=== PATIENT | male | born 1965 | race Caucasian/White ===

== ENCOUNTER 2023-08-09 17:45 | Emergency (ER) | payer MEDICARE ==
[2023-08-09] MEDS ORDERED: methylPREDNISolone Sodium Succinate 125 MG/2 ML SDV IM ONE (18:28)
== END 2023-08-09 18:50 | disposition home or self-care (01) ==
LOC: DL.ED 17:45
DX: M32.9 Systemic lupus erythematosus, unspecified (principal); F17.210 Nicotine dependence, cigarettes, uncomplicated
CPT/HCPCS: 96372; 99283; J2930

== ENCOUNTER 2024-07-06 21:31 | Emergency (ER) | payer MEDICARE ==
[2024-07-06] MEDS: Dexamethasone 4 MG/ML SDV IM ONE (23:31)
== END 2024-07-06 23:38 | disposition home or self-care (01) ==
LOC: DL.ED 21:31
DX: J06.9 Acute upper respiratory infection, unspecified (principal); B97.89 Other viral agents as the cause of diseases classified elsewhere; F17.210 Nicotine dependence, cigarettes, uncomplicated; Z79.899 Other long term (current) drug therapy; Z88.0 Allergy status to penicillin; Z88.2 Allergy status to sulfonamides
CPT/HCPCS: 71046; 87428-QW; 96372; 99283; J1100

== ENCOUNTER 2025-03-22 22:02 | Emergency (ER) | payer MEDICARE ==
[2025-03-22 22:39] LABS: BASOPHILS PERCENT AUTO 0.3 % (0.0-1.0); EOSINOPHILS PERCENT AUTO 2.8 % (1.0-3.0); LYMPHOCYTES PERCENT AUTO 26.2 % (20.5-50.1); MONOCYTES PERCENT AUTO 6.4 % (2-8); NEUTROPHILS PERCENT AUTO 64.3 % (42.2-75.2); PLATELET COUNT,PLT 214 10^3/uL (150-450); RED BLOOD CELL COUNT 5.08 10^6/uL (4.6-6.2); WHITE BLOOD CELL COUNT,WBC 14.5 10^3/uL (5.0-10.0)
[2025-03-22 22:57] LABS: A/G RATIO 1.2; ALANINE AMINOTRANSFERASE,ALT 20.0 U/L (16-63); ASPARTATE AMNIOTRANSFERASE,AST 6.0 U/L (15-37); BILIRUBIN TOTAL 0.3 mg/dL (0.2-1.0); BLOOD UREA NITROGEN,BUN 17.0 mg/dL (7-18); CARBON DIOXIDE,CO2 29.0 mmol/L (21-32); CHLORIDE,CL 103.0 mmol/L (98-107); CREATININE 1.06 mg/dL (0.70-1.30); EST CRCL DRUG DOSING (CG) 74.37 mL/min; ESTIMATED GFR 80.0 mL/min (>=60); GLUCOSE RANDOM 92.0 mg/dL (70-99); POTASSIUM,K 3.8 mmol/L (3.5-5.1); PROTEIN TOTAL,TP 6.6 g/dL (6.4-8.2); SODIUM,NA 141.0 mmol/L (136-145)
[2025-03-22] MEDS: Take Home: Acetaminophen/HYDROcodone 325-5 MG, 5 Tab Pack PO ONE (23:10)
== END 2025-03-22 23:15 | disposition home or self-care (01) ==
LOC: DL.ED 22:02
DX: J40 Bronchitis, not specified as acute or chronic (principal); S20.211A Contusion of right front wall of thorax, initial encounter; Z88.0 Allergy status to penicillin; Z88.2 Allergy status to sulfonamides; X58.XXXA Exposure to other specified factors, initial encounter
CPT/HCPCS: 36415; 71046; 80053; 85025; 94640; 99284; A9270; J8540